=== PATIENT | female | born 1980 | race Caucasian/White ===

== ENCOUNTER → 2019-12-27 | Outpatient (CLI) | payer BC ==
[~2019-12-27] MED LIST: CLAR-19 PO; OMEP-10 PO; OXYC-12 PO; PRM25T PO; TMSL.4C PO; YAZ
== END ==
LOC: LAB FS 15:52
PROVIDERS: ATTEND Family Medicine
DX: R30.0 Dysuria (principal)
CPT/HCPCS: 87088

== ENCOUNTER → 2020-01-27 | Outpatient (CLI) | payer OTHER ==
--- NOTE | 2020-01-27 11:47 | Diagnostic Imaging Report ---
INDICATION: Kidney stones. Time of exam: 1006 AM Correlation is made with prior radiograph from 05/15/2010. The right renal shadow is obscured by overlying bowel contents. There are some punctate calcifications overlying the left renal shadow suggestive of renal calculi. No definite calculi along the course of the ureters is seen. There are pelvic calcifications which are likely phleboliths. IMPRESSION: Small probable left renal calculi. The right renal shadow is obscured. Dictated by: Dictated on workstation # [id number]
== END ==
LOC: RAD FS 09:24
PROVIDERS: ATTEND Urology
DX: N20.0 Calculus of kidney (principal)
CPT/HCPCS: 74018

== ENCOUNTER → 2020-07-04 | Outpatient (CLI) | payer OTHER ==
[2020-07-04 11:54] LABS: ALANINE AMINOTRANSFERASE 17 U/L (0-55); ALBUMIN 4.9 GM/DL (3.2-4.5); ALKALINE PHOSPHATASE 87 U/L (40-136); BILIRUBIN,TOTAL 0.6 MG/DL (0.1-1.0); BUN/CREATININE RATIO 18; CALCIUM 9.9 MG/DL (8.5-10.1); CARBON DIOXIDE 26 MMOL/L (21-32); CHLORIDE 105 MMOL/L (98-107); CREATININE SERUM 0.87 MG/DL (0.60-1.30); GFR ESTIMATED > 60; GLUCOSE 93 MG/DL (70-105); POTASSIUM 4.1 MMOL/L (3.6-5.0); SODIUM 141 MMOL/L (135-145); TOTAL PROTEIN 7.6 GM/DL (6.4-8.2)
[2020-07-04 14:50] LABS: WHITE BLOOD COUNT 5.1 10^3/uL (4.3-11.0)
[2020-07-04 14:51] LABS: BASOPHILS # (AUTO) 0.1 10^3/uL (0.0-0.1); BASOPHILS % (AUTO) 1 % (0-10); EOSINOPHILS # (AUTO) 0.1 10^3/uL (0.0-0.3); EOSINOPHILS % (AUTO) 3 % (0-10); HEMATOCRIT 43 % (35-52); HEMOGLOBIN 14.5 G/DL (11.5-16.0); LYMPHOCYTES # (AUTO) 2.2 X 10^3 (1.0-4.0); LYMPHOCYTES % (AUTO) 42 % (12-44); MEAN CORPUSCULAR HEMOGLOBIN 31 PG (25-34); MEAN CORPUSCULAR HGB CONC 34 G/DL (32-36); MEAN CORPUSCULAR VOLUME 93 FL (80-99); MEAN PLATELET VOLUME 10.1 FL (7.4-10.4); MONOCYTES # (AUTO) 0.5 X 10^3 (0.0-1.0); MONOCYTES % (AUTO) 10 % (0-12); NEUTROPHILS # (AUTO) 2.2 X 10^3 (1.8-7.8); NEUTROPHILS % (AUTO) 44 % (42-75); PLATELET COUNT 367 10^3/uL (130-400)
[2020-07-04 14:52] LABS: ATYPICAL LYMPHOCYTES 9 %; BAND NEUTROPHILS 3 %; BASOPHILS % (MANUAL) 0 %; EOSINOPHILS % (MANUAL) 4 %; LYMPHOCYTES % (MANUAL) 33 %; MONOCYTES % (MANUAL) 9 %; NEUTROPHILS % (MANUAL) 42 %; RBC MORPH NORMAL
[2020-07-04 15:21] LABS: TRIGLYCERIDES 68 MG/DL (<150); VLDL CHOLESTEROL 14 MG/DL (5-40)
[2020-07-04 15:26] LABS: CHOLESTEROL 217 MG/DL (< 200)
[2020-07-04 15:27] LABS: HDL CHOLESTEROL 80 MG/DL (40-60)
== END ==
LOC: LAB FS 10:05
PROVIDERS: ATTEND Family Medicine
DX: Z00.00 Encounter for general adult medical examination without abnormal findings (principal); R53.82 Chronic fatigue, unspecified
CPT/HCPCS: 36415; 80053; 80061; 84439; 84443; 84480; 85007; 85027

== ENCOUNTER → 2020-11-15 | Outpatient (CLI) | payer OTHER ==
[2020-11-15 16:16] LABS: HEMATOCRIT 41 % (35-52); HEMOGLOBIN 13.5 G/DL (11.5-16.0); MEAN CORPUSCULAR HEMOGLOBIN 31 PG (25-34); MEAN CORPUSCULAR HGB CONC 33 G/DL (32-36); MEAN CORPUSCULAR VOLUME 94 FL (80-99); WHITE BLOOD COUNT 7.6 10^3/uL (4.3-11.0)
[2020-11-15 16:17] LABS: BASOPHILS % (AUTO) 0 % (0-10); EOSINOPHILS % (AUTO) 0 % (0-10); LYMPHOCYTES # (AUTO) 1.8 X 10^3 (1.0-4.0); LYMPHOCYTES % (AUTO) 24 % (12-44); MONOCYTES # (AUTO) 0.2 X 10^3 (0.0-1.0); MONOCYTES % (AUTO) 3 % (0-12); NEUTROPHILS # (AUTO) 5.5 X 10^3 (1.8-7.8); NEUTROPHILS % (AUTO) 72 % (42-75); PLATELET COUNT 302 10^3/uL (130-400)
[2020-11-15 16:44] LABS: ERYTHROCYTE SEDIMENTATION RATE 15 MM/HR (0-20)
[2020-11-15 16:47] LABS: ALANINE AMINOTRANSFERASE 49 U/L (0-55); ALKALINE PHOSPHATASE 105 U/L (40-136); BILIRUBIN,TOTAL 0.3 MG/DL (0.1-1.0); BUN/CREATININE RATIO 27; CARBON DIOXIDE 27 MMOL/L (21-32); CHLORIDE 105 MMOL/L (98-107); CREATININE SERUM 0.79 MG/DL (0.60-1.30); GFR ESTIMATED > 60; GLUCOSE 105 MG/DL (70-105); POTASSIUM 3.9 MMOL/L (3.6-5.0); SODIUM 144 MMOL/L (135-145); TOTAL PROTEIN 7.5 GM/DL (6.4-8.2)
[2020-11-15 16:48] LABS: ALBUMIN 4.7 GM/DL (3.2-4.5)
== END ==
LOC: LAB FS 14:03
PROVIDERS: ATTEND Family Medicine
DX: T14.8XXD Other injury of unspecified body region, subsequent encounter (principal); W57.XXXD Bitten or stung by nonvenomous insect and other nonvenomous arthropods, subsequent encounter
CPT/HCPCS: 36415; 80053; 84443; 85025; 85652; 86141; 86618; 86666; 86668; 86757

== ENCOUNTER 2022-09-10 09:30 | Outpatient (CLI) | payer BC ==
[~2022-09-10] VITALS: Ht 157.5 cm; Wt 54.5 kg
[2022-09-10] MEDS ORDERED: TIRZ7.5P SQ (10:57)
[2022-09-10] MEDS ORDERED: CETI10CA PO (10:57)
[2022-09-10] MEDS ORDERED: B12 INJECTION IM (10:57)
[2022-09-10] MEDS ORDERED: PROG100C11 PO (10:57)
[2022-09-11] MEDS ORDERED: HYDR-3817 PO (14:34)
== END 2022-09-10 13:39 | disposition home or self-care (01) ==
LOC: PREOP 09:30
PROVIDERS: ATTEND Surgery
DX: Z01.818 Encounter for other preprocedural examination (principal)

== ENCOUNTER 2022-09-11 14:13 | Day surgery (SDC) | payer BC ==
[2022-09-11] VITALS (11 sets, daily range): BP systolic 90–106; BP diastolic 53–80
[~2022-09-11] VITALS: Ht 157.5 cm; Wt 54.5 kg
[~2022-09-11 14:13] MED LIST changes: +B12 INJECTION IM; +CETI10CA PO; +PROG100C11 PO; +TIRZ7.5P SQ
[2022-09-11] MEDS ORDERED: BUP/EPI 0.5% 1:200,000 (SENSORCAINE) 30 ML VIAL ONE (14:24)
--- NOTE | 2022-09-11 14:33 | Progress Note-Pre Operative ---
Pre-Operative Progress Note Date H&P Reviewed: Sep 11, 2022 Time H&P Reviewed: 14:30 History & Physical: H&P Reviewed, Patient Examed, No changes noted Pre-Operative Diagnosis: Chronic calculous cholecystitis DENYS CHAKRABORTY REGISTERED PRIVATE DUTY NURSE Sep 11, 2022 14:32
[2022-09-11] MEDS ORDERED: HYDR-3817 PO (14:34)
--- NOTE | 2022-09-11 14:34 | Discharge Inst-Surgical ---
D/C Lap Instructions-KIDO Reconcile Patient Problems Problems Reviewed?: Yes New, Converted, or Re-Newed RX: RX on Chart Follow Up Appt in 2 weeks Activity as tolerated No driving for 24 hours No driving while on pain medications Incentive Spirometry use every 2 hours while awake Regular Diet Symptoms to Report: Fever over 101 degree F, Nausea/Vomiting Infection Signs and Symptoms to report: Increased redness, Foul odor of wound, Increased drainage Bathing instructions: May shower Operative Area Clean/Dry; Keep incision clean/dry If any problems/questions: Contact your physician or go to Emergency Room DENYS CHAKRABORTY APRN Sep 11, 2022 14:34
[2022-09-11] MEDS ORDERED: proPOfol 200 MG/20 ML (DIPRIVAN) VIAL IV ONE (14:41)
[2022-09-11] MEDS ORDERED: fentaNYL INJ 100 MCG/2 ML AMP ONE (14:41)
[2022-09-11] MEDS ORDERED: LIDOCAINE PF 2% 5 ML (XYLOCAINE) VIAL ONE (14:41)
[2022-09-11] MEDS ORDERED: ROCURONIUM 50 MG/5 ML (ZEMURON) VIAL IV ONE (14:41)
[2022-09-11] MEDS ORDERED: ONDANSETRON 4 MG/2 ML (SDV) Z0FRAN ONE (14:41)
[2022-09-11] MEDS ORDERED: MIDAZOLAM 2 MG/2 ML (VERSED) VIAL ONE (14:42)
[2022-09-11] MEDS ORDERED: ACETAMINOPHEN 325 MG TABLET PO PRN (14:45)
[2022-09-11] MEDS ORDERED: HYDROcodone/APAP 5 MG/325 MG (LORTAB) TAB PO ONE (14:45)
[2022-09-11] MEDS ORDERED: morphine INJ 10 MG/ML 1ML (SYR OR VIAL) IVP PRN (14:45)
[2022-09-11] MEDS ORDERED: FAMOTIDINE 20MG/2ML IV (PEPCID) IV ONE (14:45)
[2022-09-11] MEDS ORDERED: ONDANSETRON 4 MG/2 ML (SDV) Z0FRAN IV ONE (14:45)
[2022-09-11] MEDS ORDERED: ONDANSETRON 4 MG/2 ML (SDV) Z0FRAN IVP PRN (14:45)
[2022-09-11] MEDS ORDERED: SCOPOLAMINE 1.5 MG (TRANSDERM-SCOP) PATCH TOP ONE (14:45)
[2022-09-11] MEDS ORDERED: ceFAZolin INJECTION 1,000 MG ONE (14:54)
[2022-09-11] MEDS ORDERED: NS (IVPB) 50 ML ONE (14:54)
[2022-09-11] MEDS ORDERED: ceFAZolin INJECTION 1,000 MG in NS (IVPB) 50 ML IV ONE (15:15)
[2022-09-11] MEDS ORDERED: LACTATED RINGERS 1,000 ML IV PRN (15:30)
[2022-09-11] MEDS ORDERED: SEVOFLURANE (ULTANE) 15 ML INHAL SOLN ONE (15:59)
--- NOTE | 2022-09-11 16:07 | Progress Note-Post Operative ---
Post-Operative Progess Note Surgeon (s)/Early Years Teacher (s) Surgeon KASIE ALARCON MD Early Years Teacher: pavan lafleur DIRECTOR OF MARKETING COMMUNICATIONS Pre-Operative Diagnosis Chronic calculous cholecystitis Post-Operative Diagnosis same Procedure & Operative Findings Date of Procedure 09/11/22 Procedure Performed/Findings laparoscopic cholecystectomy Anesthesia Type get Estimated Blood Loss Estimated blood loss (mL): minimal Specimens/Packing Specimens Removed gallbladder KASIE ALARCON MD Sep 11, 2022 16:07
[2022-09-11] MEDS ORDERED: KETOROLAC 30 MG/ML VIAL ONE (16:10)
[2022-09-11] MEDS ORDERED: GLYCOPYRROLATE 0.2 MG/ML (ROBINUL) 2 ML VIAL ONE (16:13)
[2022-09-11] MEDS ORDERED: morphine INJ 10 MG/ML 1ML (SYR OR VIAL) ONE (16:16)
[2022-09-11] MEDS ORDERED: NEOSTIGMINE (BLOXIVERZ ) 1 MG/1ML 10 ML VIAL ONE (16:29)
--- NOTE | 2022-09-11 17:23 | Anesthesia-General Post-Op ---
General Patient Condition Mental Status/LOC: Same as Preop Cardiovascular: Satisfactory Nausea/Vomiting: Absent Respiratory: Satisfactory Pain: Controlled Complications: Absent Post Op Complications Complications None Follow Up Care/Instructions Patient Instructions None needed. Anesthesia/Patient Condition Patient Condition Patient is doing well, no complaints, stable vital signs, no apparent adverse anesthesia problems. No complications reported per nursing. ROSALINE KAY CRNA Sep 11, 2022 17:23
--- NOTE | 2022-09-11 23:52 | OPERATIVE REPORT ---
DATE OF SERVICE: 09/11/2022 ATTENDING PRIMARY CARE PHYSICIAN: Irena Fonseca MD PREOPERATIVE DIAGNOSIS: Symptomatic chronic calculous cholecystitis. POSTOPERATIVE DIAGNOSIS: Symptomatic chronic calculous cholecystitis. PROCEDURE: Laparoscopic cholecystectomy. SURGEON: Kasie Alarcon MD SUPERVISOR METAL FABRICATING: Stiven Morin APRN ANESTHESIA: General endotracheal. ESTIMATED BLOOD LOSS: Minimal. FINDINGS: Distended gallbladder, no gallbladder wall thickening and multiple gallstones. DISPOSITION: The patient tolerated the procedure well. INDICATIONS: The patient is a 42-year-old female who has had a 2-year history of upper abdominal discomfort usually after eating meals sometimes having radiation of pain towards the back. She also reports some episodes of nausea; however, no vomiting. She reports that this was initially very mild; however, in the past several months, this has become much more frequent as well as more severe in nature. She reports that she had an episode recently that lasted 6 hours. She underwent an ultrasound, which was found to have multiple gallstones. DESCRIPTION OF PROCEDURE: The patient was brought to the operating room, laid supine on the table. After adequate IV pain and sedative medications and general endotracheal intubation, the abdomen was prepped and draped in standard surgical fashion. A 0.5% Marcaine with epinephrine was then used to anesthetize the overlying skin in the left upper abdominal quadrant and a transverse skin incision made using a #15 blade. An 0 silk suture was applied to the medial aspect of the incision for retraction and a Veress needle inserted with a low opening pressure of 0 mmHg and the abdomen was then insufflated to 15 mmHg pressure. The Veress needle removed and a 5 mm XL trocar placed followed by a 5 mm 45-degree angle laparoscope visualized the peritoneal cavity. A 4-quadrant abdominal exploration was performed. There was a slightly distended gallbladder, no gallbladder wall thickening. Under direct visualization, we then proceeded to place a supraumbilical 10 mm port after the skin and peritoneal lining were anesthetized using 0.5% Marcaine with epinephrine and transverse skin incision made using a #15 blade. In a similar manner, a right upper abdominal quadrant 5 mm port was placed. The patient was then placed in reverse Trendelenburg position as well as plane right side up, left side down. The fundus of the gallbladder was then retracted anteriorly and superiorly. The hepatoduodenal ligament was then dissected bluntly as well as using cautery, using the hook as well as a [place] dissector. The entire critical view of safety was identified including the triangle of Calot as well as the cystic duct and artery as the only two structures going into the gallbladder as well as the cystic plate behind the proximal gallbladder. A timeout was then taken and the cystic duct and artery were then clipped proximally and distally and cut with EndoShears. The gallbladder was then dissected off the liver bed using cautery on hook instrument with visualization of good hemostasis as well as no leaking ducts of Luschka. The gallbladder was removed through the 10 mm port site using an EndoCatch bag. The fascia and peritoneum to the 10 mm port site were then closed under direct visualization using a Luis Miguel-Cher device and an 0 Vicryl suture. The abdomen was desufflated and the remaining ports removed. All skin incisions were closed using 4-0 Monocryl running subcuticular sutures. Wounds were then cleaned and covered with Dermabond. The patient tolerated the procedure well. We will start IV normal pain medication as well as a clear liquid diet. Once she is tolerating clears, has good pain control with oral pain medications, ambulating well, we will discharge her home where she will be instructed to do no heavy lifting or exertion for the next 2 weeks. Job ID: [id number] DocumentID: [id number] Dictated Date: 09/11/2022 16:13:45 Vegetable Packer Date: 09/11/2022 23:50:00 Dictated By: KASIE ALARCON MD
== END 2022-09-11 18:35 | disposition home or self-care (01) ==
LOC: SDC 14:13
PROVIDERS: ATTEND Surgery
DX: K80.10 Calculus of gallbladder with chronic cholecystitis without obstruction (principal); Z28.310 Unvaccinated for COVID-19
CPT/HCPCS: 87081